=== PATIENT | female | born 1990 | race Caucasian/White ===

== ENCOUNTER 2024-08-10 03:20 | Emergency (ER) | payer SELFPAY ==
[~2024-08-10] VITALS: Ht 167.6 cm; Wt 102.0 kg
[2024-08-10 03:37] VITALS: BP 130/55
[2024-08-10] MEDS ORDERED: SODIUM CHLORIDE 0.9% 1,000 ML IV STA (04:05)
[2024-08-10] MEDS ORDERED: KETOROLAC TROMETHAMINE 30 MG/ML SDV IV ONE (04:10)
[2024-08-10] MEDS ORDERED: PROMETHAZINE HCL 25 MG/ML AMP IV ONE (04:10)
[2024-08-10 04:24] LABS: BASO% 0.5 % (0-3); EOS% 1.1 % (0-8); HEMATOCRIT 41.7 % (37.0-47.0); HEMOGLOBIN 13.4 g/dl (12.0-16.0); IMMATURE GRANULOCYTES 0.5 % (0.0-5.0); LYMPH% 21.1 % (15-41); MEAN CELL VOLUME 87.6 fL CALC (80.0-100.0); MEAN CORPUSCULAR HGB 28.2 pG CALC (26.0-32.0); MEAN CORPUSCULAR HGB CONC 32.1 g/dL CAL (32.0-36.0); MONO% 5.6 % (2-13); NEUT# 7.77 thou/uL (2.00-7.15); NEUT% 71.2 % (42-76); RED BLOOD COUNT 4.76 mill/uL (4.20-5.60); RED CELL DISTRI WIDTH 11.7 % (11.5-15.5)
[2024-08-10 04:28] LABS: URINE BLOOD DIPSTICK Large (NEGATIVE); URINE GLUCOSE - DIPSTICK Negative (NEGATIVE); URINE KETONE 40 mg/dL (NEGATIVE); URINE NITRITE - DIPSTICK Negative (Negative); URINE PROTEIN - DIPSTICK 30 mg/dL (NEG-TRACE); URINE SPECIFIC GRAVITY >=1.030
[2024-08-10 04:31] LABS: URINE COLOR Yellow
[2024-08-10 04:32] LABS: URINE LEUK ESTERASE Negative (NEGATIVE)
[2024-08-10 04:40] LABS: URINE BACTERIA FEW hpf; URINE EPITHELIAL CELLS MODERATE EPI/hpf (0-FEW)
[2024-08-10 04:40] LABS: ALBUMIN 4.6 g/dL (3.2-5.0); BILIRUBIN, TOTAL 1.3 mg/dL (0.02-1.3); CREATININE 0.7 mg/dL (0.5-1.0); POTASSIUM 3.5 mmol/l (3.5-5.1); TOTAL PROTEIN 8.1 g/dL (6.3-8.2)
[2024-08-10 04:41] LABS: URINE MUCUS FEW hpf (NONE-FEW)
[2024-08-10] MEDS ORDERED: DiphenhydrAMINE HCL 50 MG/ML SDV IV ONE (05:30)
[2024-08-10] MEDS ORDERED: ONDANSETRON4 MG PO (05:49)
[2024-08-10 05:58] VITALS: BP 101/56
[2024-08-10 06:01] VITALS: BP 105/61
[2024-08-10 06:16] VITALS: BP 105/61
== END 2024-08-10 06:16 | disposition home or self-care (01) | DRG 392 ==
LOC: ED 03:20
PROVIDERS: Family Medicine
DX: A08.4 Viral intestinal infection, unspecified (principal); Z20.822 Contact with and (suspected) exposure to COVID-19

== ENCOUNTER 2024-12-06 08:55 | Emergency (ER) | payer OTHER ==
[~2024-12-06] VITALS: Ht 167.6 cm; Wt 102.6 kg
[~2024-12-06 08:55] MED LIST: FLEXERIL5 M1 PO; NAPROXEN500 MG PO; ONDANSETRON4 MG PO; TRAMADOL HYDROC50 M1 PO
[2024-12-06 09:13] VITALS: BP 133/78
[2024-12-06] MEDS ORDERED: VENTOLIN HFA108 MCG PO (10:04)
[2024-12-06] MEDS ORDERED: ZPAK PO (10:04)
[2024-12-06] MEDS ORDERED: AMOX/K CLAV875 M1 PO (10:04)
== END 2024-12-06 10:46 | disposition home or self-care (01) | DRG 153 ==
LOC: ED 08:55
DX: J32.9 Chronic sinusitis, unspecified (principal); Z20.822 Contact with and (suspected) exposure to COVID-19